=== PATIENT | female | born 1995 | race Hispanic/Latino ===

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

== ENCOUNTER 2017-10-22 02:40 | Emergency (ER) | payer MEDICAID ==
[2017-10-22 02:44] VITALS: BMI 39.0
[2017-10-22 02:45] VITALS: RESP 16; O2SAT 100
--- NOTE | 2017-10-22 03:17 | ED PDOC ---
Arrival/HPI - General Chief Complaint: Psychiatric Evaluation Time Seen by Provider: 10/22/17 02:42 Historian: Patient - History of Present Illness Narrative History of Present Illness (Text): 10/22/17 03:14 A 22 year old female, whose past medical history includes depression, is brought into the emergency department via EMS for further evaluation of suicidal ideation. As per patient, she posted on Facebook that she wanted to hurt herself. She currently states that she does not want to hurt herself, and only posted that because she was angry. She also notes that she is experiencing auditory hallucinations of her landlord telling her to use a knife to cut herself. Patient is requesting to speak to a psychiatrist and be transferred [place] [facility] She was seen at [facility] [place] today but discharged home. The patient denies fevers, chills, headache, dizziness, sore throat, cough, chest pain, shortness of breath, dyspnea on exertion, abdominal pain, nausea, vomiting, diarrhea, neck/back pain, urinary/bowel changes or any other complaint. Time/Duration: Prior to Arrival Symptom Onset: Sudden Symptom Course: Unchanged Activities at Onset: Rest, Light Context: Home Past Medical History - Provider Review Nursing Documentation Reviewed: Yes - Infectious Disease Hx of Infectious Diseases: None - Cardiac Hx Hypertension: No - Pulmonary Hx Tuberculosis: No - Neurological Hx Seizures: No - Endocrine/Metabolic Hx Endocrine Disorders: Yes Hx Diabetes Mellitus Type 2: Yes - Hematological/Oncological Hx Cancer: No - Genitourinary/Gynecological Hx Sexually Transmitted Diseases: No - Psychiatric Hx Anxiety: Yes Hx Depression: Yes Hx Substance Use: No - Anesthesia Hx Anesthesia: No - Suicidal Assessment Suicide Risk Precautions: None Family/Social History - Physician Review Nursing Documentation Reviewed: Yes Family/Social History: No Known Family HX Smoking Status: Never Smoked Hx Alcohol Use: No Hx Substance Use: No Allergies/Home Meds Allergies/Adverse Reactions: Allergies No Known Allergies Allergy (Verified 12/25/16 16:16) Home Medications: Home Meds Medication Instructions Recorded Confirmed Sertraline HCl [Zoloft] 150 mg PO HS 12/25/16 10/22/17 OXcarbazepine [Trileptal] 600 mg PO BID 08/29/17 10/22/17 Divalproex [Depakote ER] 500 mg PO HS 10/21/17 10/22/17 QUEtiapine [SEROquel] 100 mg PO HS 10/21/17 10/22/17 metFORMIN [glucOPHAGE] 500 mg PO BID 10/21/17 10/22/17 Review of Systems - Physician Review All systems were reviewed & negative as marked: Yes - Review of Systems Constitutional: absent: Fevers Respiratory: absent: SOB, Cough Cardiovascular: absent: Chest Pain, CHAHAL Gastrointestinal: absent: Abdominal Pain, Stool Changes, Diarrhea, Nausea, Vomiting Genitourinary Female: absent: Urine Output Changes Musculoskeletal: absent: Back Pain, Neck Pain Neurological: absent: Headache, Dizziness Psychiatric: Suicidal Ideation Physical Exam Vital Signs Reviewed: Yes Vital Signs Temp Pulse Resp BP Pulse Ox 10/22/17 06:38 98.0 F 89 16 112/72 100 10/22/17 02:45 97.7 F 98 H 16 116/80 100 10/22/17 02:44 97.7 F 98 H 16 116/80 100 Temperature: Afebrile Blood Pressure: Normal Pulse: Tachycardic Respiratory Rate: Normal Appearance: Positive for: Well-Appearing, Non-Toxic, Comfortable Pain Distress: None Mental Status: Positive for: Alert and Oriented X 3 - Systems Exam Head: Present: Atraumatic, Normocephalic Pupils: Present: PERRL Extroacular Muscles: Present: EOMI Conjunctiva: Present: Normal Mouth: Present: Moist Mucous Membranes Neck: Present: Normal Range of Motion Respiratory/Chest: Present: Clear to Auscultation, Good Air Exchange. No: Respiratory Distress, Accessory Muscle Use Cardiovascular: Present: Regular Rate and Rhythm, Normal S1, S2. No: Murmurs Abdomen: No: Tenderness, Distention, Peritoneal Signs Back: Present: Normal Inspection Upper Extremity: Present: Normal Inspection. No: Cyanosis, Edema Lower Extremity: Present: Normal Inspection. No: Edema Neurological: Present: GCS=15, CN II-XII Intact, Speech Normal Skin: Present: Warm, Dry, Normal Color. No: Rashes Psychiatric: Present: Alert, Oriented x 3, Normal Insight, Normal Concentration Medical Decision Making ED Course and Treatment: 10/22/17 03:18 Impression: A 22 year old female is brought into the emergency department via EMS for suicidal ideation. Plan: -- EKG -- Chest X-ray -- Labs -- Urinalysis -- Reassess and disposition Prior Visits: Notes and results from previous visits were reviewed. Progress Notes: 10/22/17 03:18 EKG: Ordered, reviewed, and independently interpreted the EKG. Rate : 88 BPM Rhythm : NSR Interpretation : No acute changes 10/22/17 06:42 Pt. medically cleared was seen and evaluated by CARLOS Guadarrama.She discussed case with the psychiatrist who recommended discharge and follow up outpatient with her psychiatrist.Mother present with the patient and agrees. - Lab Interpretations Lab Results: 10/22/17 02:43 10/22/17 02:43 Lab Results 10/22/17 04:52: Urine Opiates Screen Negative, Urine Methadone Screen Negative, Ur Barbiturates Screen Negative, Ur Phencyclidine Scrn Negative, Ur Amphetamines Screen Negative, U Benzodiazepines Scrn Negative, U Oth Cocaine Metabols Negative, U Cannabinoids Screen Negative 10/22/17 04:52: Urine Color Yellow, Urine Appearance Sl cloudy, Urine pH 6.0, Ur Specific [place] >= 1.030, Urine Protein 100 H, Urine Glucose (UA) Negative, Urine Ketones Negative, Urine Blood Trace-lysed H, Urine Nitrate Negative, Urine Bilirubin Negative, Urine Urobilinogen 0.2, Ur Leukocyte Esterase Trace H , Urine RBC 1 - 3, Urine WBC 2 - 5, Ur Epithelial Cells 0 - 2, Urine Bacteria Mod, Urine HCG, Qual Negative 10/22/17 02:43: Alcohol, Quantitative < 10 10/22/17 02:43: WBC 9.9 D, RBC 4.60, Hgb 13.1, Hct 39.2, MCV 85.2, MCH 28.5, MCHC 33.4, RDW 14.5, Plt Count 393, MPV 9.6 10/22/17 02:43: Sodium 144, Potassium 3.8, Chloride 105, Carbon Dioxide 24, Anion Gap 19, BUN 11, Creatinine 0.5 L, Est GFR ( Amer) > 60, Est GFR ( Non-Af Amer) > 60, Random Glucose 99, Calcium 9.6, Total Bilirubin 0.2, AST 22, ALT 36, Alkaline Phosphatase 117, Total Protein 8.1, Albumin 4.5, Globulin 3.6, Albumin/Globulin Ratio 1.3 I have reviewed the lab results: Yes - RAD Interpretation Narrative RAD Interpretations (Text): 10/22/17 06:41 CXR- no acute process Radiology Orders: 10/22/17 02:47 CHEST PORTABLE [RAD] Stat Coverer: ED Physician - EKG Interpretation Interpreted by ED Physician: Yes Type: 12 lead EKG - Scribe Statement The provider has reviewed the documentation as recorded by the Scribe Irene Kelly Provider Scribe Attestation: All medical record entries made by the Scribe were at my direction and personally dictated by me. I have reviewed the chart and agree that the record accurately reflects my personal performance of the history, physical exam, medical decision making, and the department course for this patient. I have also personally directed, reviewed, and agree with the discharge instructions and disposition. Disposition/Present on Arrival - Present on Arrival Any Indicators Present on Arrival: No History of DVT/PE: No History of Uncontrolled Diabetes: No Urinary Catheter: No History of Decub. Ulcer: No History Surgical Site Infection Following: None - Disposition Have Diagnosis and Disposition been Completed?: Yes Diagnosis: Depression Disposition: HOME/ ROUTINE Disposition Time: 06:44 Patient Plan: Discharge Condition: STABLE Additional Instructions: Follow up outpatient with your psychiatrist as instructed. Referrals: Cyndie Garcia MD [Primary Care Provider] - Follow up with primary Forms: [employer] ([place]ese)
[2017-10-22 04:15] LABS: ALB/GLOB RATIO 1.3 (1.1-1.8); ALBUMIN 4.5 g/dL (3.0-4.8); ALT/SGPT 36 U/L (7-56); AST/SGOT 22 U/L (14-36); BLOOD UREA NITROGEN 11 mg/dL (7-21); CALCIUM 9.6 mg/dL (8.4-10.5); GFR NON-AFRICAN AMERICAN > 60
[2017-10-22 05:03] LABS: HEMOGLOBIN 13.1 g/dL (12.0-16.0); MEAN CELL VOLUME 85.2 fl (80.0-105.0); MEAN CORPUSCULAR HEMOGLOBIN 28.5 pg (25.0-35.0); MEAN CORPUSCULAR HGB CONC 33.4 g/dl (31.0-37.0); MEAN PLATELET VOLUME 9.6 fl (7.0-11.0); RBC 4.6 10^6/uL (3.5-6.1); RED CELL DISTRIBUTION WIDTH 14.5 % (11.5-14.5); WHITE BLOOD COUNT 9.9 10^3/ul (4.5-11.0)
[2017-10-22 05:26] LABS: URINE BILIRUBIN NEGATIVE (NEGATIVE); URINE BLOOD TRACE-LYSED (NEGATIVE); URINE GLUCOSE (UA) NEGATIVE (NEGATIVE); URINE LEUKOCYTE ESTERASE TRACE Leu/uL (NEGATIVE); URINE PROTEIN 100 mg/dL (<30 mg/dL); URINE UROBILINOGEN 0.2 E.U./dL (<1 E.U./dL)
[2017-10-22 05:45] LABS: URINE COLOR YELLOW (YELLOW)
[2017-10-22 05:46] LABS: URINE APPEARANCE SL CLOUDY (CLEAR)
[2017-10-22 05:48] LABS: HCG,QUALITATIVE URINE NEGATIVE (NEGATIVE)
[2017-10-22 05:54] LABS: URINE BACTERIA MOD (NEG); URINE EPITHELIAL CELLS 0 - 2 /hpf (0-5)
[2017-10-22 06:00] LABS: BARBITURATES, UR NEGATIVE (NEGATIVE); BENZODIAZEPINES, UR NEGATIVE (NEGATIVE); OPIATES, UR NEGATIVE (NEGATIVE); PHENCYCLIDINE, UR NEGATIVE (NEGATIVE)
[2017-10-22 06:39] VITALS: BP 112/72; PULSE 89; TEMP 98
--- NOTE | 2017-10-22 09:09 | RAD ---
Date of service: 10/22/2017 HISTORY: medical clearance COMPARISON: No prior. FINDINGS: LUNGS: No active pulmonary disease. PLEURA: No significant pleural effusion identified, no pneumothorax apparent. CARDIOVASCULAR: Normal. OSSEOUS STRUCTURES: No significant abnormalities. VISUALIZED UPPER ABDOMEN: Normal. OTHER FINDINGS: None. IMPRESSION: No active disease.
--- NOTE | 2017-10-22 23:31 | CARD ---
APPROVED REPORT Date of service: 10/22/2017 EKG Measurement Heart [id number] <Conclusion> Normal sinus rhythm Normal ECG
== END 2017-10-22 07:01 | disposition home or self-care (01) ==
LOC: ED 02:40
DX: F32.9 Major depressive disorder, single episode, unspecified (principal)

== ENCOUNTER 2017-12-24 19:13 | Inpatient (IN) | payer MEDICAID, MEDICARE ==
[2017-12-24 19:14] VITALS: BMI 39.0
--- NOTE | 2017-12-24 20:32 | ED PDOC ---
Arrival/HPI - General Chief Complaint: Psychiatric Evaluation Time Seen by Provider: 12/24/17 19:26 Historian: Patient - History of Present Illness Narrative History of Present Illness (Text): 12/24/17 19:25 Vivienne Moss is a 22 year old female, whose past medical history includes anxiety and depression, who presents to the ED complaining of suicidal ideation. Patient states she has been having thoughts of killing herself and states she wants to stab herself in the arm with a knife. Patient denies any fever, chills, chest pain, shortness of breath, abdominal pain, nausea, vomiting, diarrhea, urinary symptoms, back pain, neck pain, headache, dizziness, or any other somatic complaints. Symptom Onset: Gradual Symptom Course: Unchanged Activities at Onset: Light Context: Home Past Medical History - Provider Review Nursing Documentation Reviewed: Yes - Infectious Disease Hx of Infectious Diseases: None - Reproductive Menopause: No - Cardiac Hx Hypertension: No - Pulmonary Hx Tuberculosis: No - Neurological Hx Seizures: No - Endocrine/Metabolic Hx Endocrine Disorders: Yes Hx Diabetes Mellitus Type 2: Yes - Hematological/Oncological Hx Cancer: No - Genitourinary/Gynecological Hx Sexually Transmitted Diseases: No - Psychiatric Hx Anxiety: Yes Hx Depression: Yes Hx Substance Use: No - Anesthesia Hx Anesthesia: No - Suicidal Assessment Feels Threatened In Home Enviroment: No Family/Social History - Physician Review Nursing Documentation Reviewed: Yes Family/Social History: Unknown Family HX Smoking Status: Never Smoked Hx Alcohol Use: No Hx Substance Use: No Allergies/Home Meds Allergies/Adverse Reactions: Allergies No Known Allergies Allergy (Verified 12/25/17 04:14) Home Medications: Home Meds Medication Instructions Recorded Confirmed Sertraline HCl [Zoloft] 150 mg PO HS 12/25/16 12/25/17 OXcarbazepine [Trileptal] 600 mg PO BID 08/29/17 12/25/17 Divalproex [Depakote ER] 500 mg PO HS 10/21/17 12/25/17 QUEtiapine [SEROquel] 100 mg PO HS 10/21/17 12/25/17 metFORMIN [glucOPHAGE] 500 mg PO BID 10/21/17 12/25/17 Review of Systems - Physician Review All systems were reviewed & negative as marked: Yes - Review of Systems Constitutional: Normal. absent: Fevers Eyes: Normal ENT: Normal Respiratory: Normal. absent: SOB, Cough Cardiovascular: Normal. absent: Chest Pain Gastrointestinal: Normal. absent: Abdominal Pain, Diarrhea, Nausea, Vomiting Genitourinary Female: Normal. absent: Dysuria, Frequency, Hematuria, Urine Output Changes Musculoskeletal: Normal. absent: Back Pain, Neck Pain Skin: Normal. absent: Rash Neurological: Normal. absent: Headache, Dizziness Endocrine: Normal Hemo/Lymphatic: Normal Psychiatric: Depression, Suicidal Ideation Physical Exam Vital Signs Reviewed: Yes Vital Signs Temp Pulse Resp BP Pulse Ox 12/24/17 20:10 98.2 F 86 18 129/70 96 Temperature: Afebrile Blood Pressure: Normal Pulse: Regular Respiratory Rate: Normal Appearance: Positive for: Well-Appearing, Non-Toxic, Comfortable Pain Distress: None Mental Status: Positive for: Alert and Oriented X 3 - Systems Exam Head: Present: Atraumatic, Normocephalic Pupils: Present: PERRL Extroacular Muscles: Present: EOMI Conjunctiva: Present: Normal Mouth: Present: Moist Mucous Membranes Neck: Present: Normal Range of Motion Respiratory/Chest: Present: Clear to Auscultation, Good Air Exchange. No: Respiratory Distress, Accessory Muscle Use Cardiovascular: Present: Regular Rate and Rhythm, Normal S1, S2. No: Murmurs Abdomen: No: Tenderness, Distention, Peritoneal Signs Back: Present: Normal Inspection Upper Extremity: Present: Normal Inspection. No: Cyanosis, Edema Lower Extremity: Present: Normal Inspection. No: Edema Neurological: Present: GCS=15, CN II-XII Intact, Speech Normal Skin: Present: Warm, Dry, Normal Color. No: Rashes Psychiatric: Present: Alert, Oriented x 3, Normal Insight, Normal Concentration Medical Decision Making ED Course and Treatment: 12/24/17 19:25 Impression: 22 year old female c/o depression and suicidal ideation. Plan: -- EKG -- Labs, alcohol level -- UA, urine drug screen -- Reassess and disposition Progress Notes: Reviewed EKG, NSR at [address]-segment elevations or depressions, no T-wave inversions, normal intervals. 12/24/17 20:30 Labs reviewed, grossly unremarkable. Pt medically cleared for PES evaluation. 12/24/17 21:45 Pt seen and evaluated by PES blaine Rodriguez, who discussed case with psychiatrist immigration consultant. Pt will be admitted to Behavior[facility] for depression under Dr. Ozuna's service. Pt agreeable with plan. - Lab Interpretations I have reviewed the lab results: Yes - EKG Interpretation Interpreted by ED Physician: Yes Type: 12 lead EKG - Scribe Statement The provider has reviewed the documentation as recorded by the Scribe Mariela Lozano All medical record entries made by the Scribe were at my direction and personally dictated by me. I have reviewed the chart and agree that the record accurately reflects my personal performance of the history, physical exam, medical decision making, and the department course for this patient. I have also personally directed, reviewed, and agree with the discharge instructions and disposition. Disposition/Present on Arrival - Present on Arrival Any Indicators Present on Arrival: No History of DVT/PE: No History of Uncontrolled Diabetes: No Urinary Catheter: No History of Decub. Ulcer: No History Surgical Site Infection Following: None - Disposition Have Diagnosis and Disposition been Completed?: Yes Diagnosis: Depression Disposition: HOSPITALIZED Disposition Time: 22:00 Patient Problems: Current Active Problems Problem Status Onset Neurocognitive disorder Acute Psychosis Acute Condition: GOOD
[2017-12-24 22:00] LABS: BASO # 0.02 K/mm3 (0.0-2.0); BASO % 0.2 % (0.0-3.0); EOS % 0.4 % (1.5-5.0); GRAN # 6.7 (1.4-6.5); GRAN % 66.3 % (50.0-68.0); HEMOGLOBIN 13.1 g/dL (12.0-16.0); LYMPH # 2.5 (1.2-3.4); LYMPH % 24.8 % (22.0-35.0); MEAN CELL VOLUME 85.6 fl (80.0-105.0); MEAN CORPUSCULAR HEMOGLOBIN 28.1 pg (25.0-35.0); MEAN CORPUSCULAR HGB CONC 32.8 g/dl (31.0-37.0); MEAN PLATELET VOLUME 9.7 fl (7.0-11.0); MONO # 0.8 (0.1-0.6); MONO % 8.3 % (1.0-6.0); RBC 4.66 10^6/uL (3.5-6.1); RED CELL DISTRIBUTION WIDTH 14.8 % (11.5-14.5); WHITE BLOOD COUNT 10.1 10^3/ul (4.5-11.0)
[2017-12-24 22:08] LABS: ALB/GLOB RATIO 1.3 (1.1-1.8); ALBUMIN 4.8 g/dL (3.0-4.8); ALT/SGPT 43 U/L (7-56); AST/SGOT 38 U/L (14-36); BLOOD UREA NITROGEN 9 mg/dL (7-21); CALCIUM 9.6 mg/dL (8.4-10.5); GFR NON-AFRICAN AMERICAN > 60
[2017-12-24 22:10] LABS: ACETAMINOPHEN < 10.0 ug/ml (10.0-20.0); SALICYLATE < 1 mg/dL (2.0-20.0)
[2017-12-24 22:49] LABS: PH,URINE 5.5 (4.7-8.0); URINE BILIRUBIN NEGATIVE (NEGATIVE); URINE BLOOD NEGATIVE (NEGATIVE); URINE GLUCOSE (UA) NEGATIVE (NEGATIVE); URINE LEUKOCYTE ESTERASE NEGATIVE Leu/uL (NEGATIVE); URINE PROTEIN NEGATIVE mg/dL (<30 mg/dL); URINE UROBILINOGEN 0.2 E.U./dL (<1 E.U./dL)
[2017-12-24 22:51] LABS: URINE APPEARANCE CLOUDY (CLEAR); URINE COLOR LIGHT YELLOW (YELLOW)
[2017-12-24 22:57] LABS: HCG,QUALITATIVE URINE NEGATIVE (NEGATIVE)
[2017-12-24 23:14] LABS: URINE RBC 0 - 2 /hpf (0-2); URINE WBC NEGATIVE /hpf (0-6)
[2017-12-24 23:15] LABS: URINE AMORPHOUS SEDIMENT MANY; URINE BACTERIA MANY (NEG)
[2017-12-25 02:33] LABS: BARBITURATES, UR NEGATIVE (NEGATIVE); BENZODIAZEPINES, UR NEGATIVE (NEGATIVE); OPIATES, UR NEGATIVE (NEGATIVE); PHENCYCLIDINE, UR NEGATIVE (NEGATIVE)
[2017-12-25] MEDS ORDERED: Magnesium Hydroxide Susp 30 ml UD PO PRN (03:53)
[2017-12-25] MEDS ORDERED: Alum-Mag Hydrox-Simethicone Susp (30 mL) PO PRN (03:53)
[2017-12-25] MEDS: Divalproex 500 mg ER (ONCE DAILY formulation) PO SCH ×2 (04:08→21:41)
[2017-12-25 04:11] VITALS: O2SAT 99
--- NOTE | 2017-12-25 05:40 | PCM.BM ---
<Joleen Romero - Last Filed: 12/25/17 05:36> Treatment Plan Problems - Problems identified on initial assessmt Suicidal ideaation Date Initiated: 12/25/17 (n) Time Initiated: 03:30 Assessment reference: NA Status: Active Priority: 1 Auditory Hallucination Date Initiated: 12/25/17 Time Initiated: 03:00 Assessment reference: NA Status: Active Priority: 2 Visual hallucinations Date Initiated: 12/25/17 Time Initiated: 03:00 Assessment reference: NA Status: Active Priority: 3 Thought process Date Initiated: 12/25/17 Time Initiated: 03:00 Assessment reference: NA Status: Active Priority: 4 Ineffective coping Date Initiated: 12/25/17 Time Initiated: 03:00 Assessment reference: NA Status: Active Priority: 5 Medication Non adherence Date Initiated: 12/25/17 Time Initiated: 03:00 Assessment reference: NA Status: Active Priority: 6 Altered sleep Date Initiated: 12/25/17 Time Initiated: 03:00 Assessment reference: NA Status: Active Priority: 7 Treatment assets and liabiliti Patient Assests: cooperative, motivated, ADL independent Patient Liabilities: imparied memory - Milieu Protocol Maintain good personal hygiene: daily Encourage regular showers, every shift Remind patient to perform daily oral care, every shift Assist patient to perform ADL's Maintain personal safety: every shift Educate patient to report safety concerns to staff, every shift Monitor environment for contraband/sharps Medication safety: Monitor for expected outcome, potential side effects: every shift, Assess barriers to learning: every shift, Assess readiness for medication education: every shift Family Contact Family involvement: Family/SO is involved Family contact: Patient agrees to contact - Goals for Treatment Patient goals for treatment: "I don't know" Discharge/Continuing Care - Education Needs Education Needs: Patient Medication, Patient Diagnosis/Disease Process, Patient Coping Skills, Patient Anger Management skills, Patient Placement options, Patient Community resources, Patient Activities of Daily Living, Patient Pain, Patient Nutrition, Patient Uses of Medical Equipment, Patient Health Practices/Safety, Patient Personal Hygiene/Grooming, Patient Aftercare Safety Plan, Patient Other - Discharge Discharge Criteria: Tolerates medication w/o severe side effects, Free of Suicidal thoughts, Free of Homicidal thoughts, Normal sleep pattern, Ability to care for self, No longer exhibiting s/s of withdrawal, Reduction of target symptoms Discharge to:: Home <Anupama Ozuna - Last Filed: 12/25/17 14:15> - Diagnosis (1) Psychosis Status: Acute Interventions: 12/25/17 14:15 Psychoeducation/psychotherapy Psychopharmacology/adjustment of medications as needed/ monitoring possible side effects Evaluate pt on daily basis Compliance with medications and follow up appointments Long acting medication if pt is noncompliant with pill form Suicide and homicide risk assessment and prevention, coping strategies, safety plan Relapse prevention Reduction of symptoms Improve functional status Possible assertive community treatment Cognitive behavioral therapy Family involvement Possible social skill training as outpatient (2) Neurocognitive disorder Status: Acute Interventions: 12/25/17 14:15 IOP ICMS <Naomi Metcalf - Last Filed: 12/26/17 15:17> Family Contact Family involvement: Family/SO is involved Family contact: Patient agrees to contact Family contact name: Martha Moss(mother) Family contacted how many times per week?: 2 - Outside Agency [facility] Care involvment: Following patient during stay, Information-sharing Agency contact name: [facility] Agency contact number: [phone] <Jennifer Pinto - Last Filed: 12/26/17 16:23>
[2017-12-25 09:04] LABS: GLUCOSE,FASTING 102 mg/dL (65-110); HDL CHOLESTEROL 55 mg/dL (29-60)
[2017-12-25 09:14] LABS: LDL CHOLESTEROL 107 mg/dL (0-129)
--- NOTE | 2017-12-25 10:11 | RAD ---
Date of service: 12/24/2017 HISTORY: PES clearance COMPARISON: No chen 10/22/2017 or. FINDINGS: LUNGS: The lungs are well inflated and clear. PLEURA: No pleural effusions or pneumothorax. CARDIOVASCULAR: The heart is normal in size. No aortic atherosclerotic calcification present. OSSEOUS STRUCTURES: Within normal limits for the patient's age. VISUALIZED UPPER ABDOMEN: Normal. OTHER FINDINGS: None. IMPRESSION: No active pulmonary disease.
--- NOTE | 2017-12-25 10:48 | CARD ---
APPROVED REPORT Date of service: 12/24/2017 EKG Measurement Heart [id number] <Conclusion> Normal sinus rhythm Normal ECG No change
--- NOTE | 2017-12-25 14:15 | PCM.PSYCH ---
Initial Psychiatric Evaluation - Initial Psychiatric Evaluation Type of Admission: Voluntary Legal Status: Capacity (patient has capacity to sign consent for treatment) Chief Complaint (in patient's own words): 'I couldn't take it no more...." Patient's Reaction to Hospitalization: patient was admitted to psychiatric inpatient unit for evaluation and stabilization of depressive symptoms and possible suicidal ideation with a plan to stab herself with a knife. History of Present Illness and Precipitating Events: shortly patient is a 22 year old female, whose past medical history includes anxiety and depression, Luisa cognitive deficit, who presents to the ED complaining of suicidal ideation. patient expressed thoughts of harming herself with a plan to stab herself with a knife, patient requires further evaluation and stabilization and medications adjustment.. Patient failed outpatient treatment, at present moment patient requires to stay in to the psychiatric inpatient unit for further evaluation and stabilization. Patient was seen at the dining area, patient presented with psychomotor the rotation, poor personal hygiene, poor ADLs. Patient seems to be poor and unreliable historian, overnight psychiatrist on-call started patient on one-to-one observation, but as per report patient was calm, corporative, will hold one-to-one observation as of now, if patient requires further one-to-one observation we'll resume it. 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 Previous records reviewed, patient does not have history of being admitted to the [facility]. Patient reported that she was feeling depressed, hopeless and helpless, at the same time this advertising writer is not sure if patient has deep understanding of the meaning of such statements. Patient reported that she hears voices telling her to kill herself, patient also reported that she sees "black cats and dogs, patient reported that she has poor sleep, patient reported that she feels depressed because "I'm not able to walk". Patient is not sure what medication she is currently on, medications were confirmed by patient pharmacy: Seroquel 100 mg 1 tablet twice a day last filled in 12/10/2017. Depakote extended-release 500 mg2 tabs at bedtime last time filled in November 17, 2017 Metformin 500 mg one pill twice a day field in 11/17/2017 Zoloft 100 mg 1 by mouth at bedtime filled in 11/17/2017 trileptal 600mg was prescribed by filled 08/2017 Depakote level was low most likely patient was noncompliant with the medications. patient was not able to provide past psychiatric history, patient was not able to tell is it the first psychiatric hospitalization or not. Patient denied substance abuse, denied history of alcohol use, denied smoking, denied physical, emotional, sexual abuse in the past. this advertising writer has impression that patient has history of wandering behavior because patient was wearing a bracelet device which can help police to trackpatient location. patient was not able to provide past medical history, obviously patient is obese patient was not able to provide family history 12/24/17 21:41 12/24/17 21:41 Lab Results 12/25/17 08:40: Valproic Acid < 10 L 12/25/17 08:40: TSH 3rd Generation 2.99 12/25/17 08:40: Fasting Glucose 102, Triglycerides 97, Cholesterol 170, LDL Cholesterol Direct 107, HDL Cholesterol 55 12/25/17 01:55: Urine Opiates Screen Negative, Urine Methadone Screen Negative, Ur Barbiturates Screen Negative, Ur Phencyclidine Scrn Negative, Ur Amphetamines Screen Negative, U Benzodiazepines Scrn Negative, U Oth Cocaine Metabols Negative, U Cannabinoids Screen Negative 12/24/17 22:32: Urine Color Light yellow, Urine Appearance Cloudy, Urine pH 5.5, Ur Specific [place] >= 1.030, Urine Protein Negative, Urine Glucose (UA) Negative, Urine Ketones Negative, Urine Blood Negative, Urine Nitrate Negative, Urine Bilirubin Negative, Urine Urobilinogen 0.2, Ur Leukocyte Esterase Negative, Urine RBC 0 - 2, Urine WBC Negative, Ur Epithelial Cells 1 - 3, Amorphous Sediment Many, Urine Bacteria Many, Urine HCG, Qual Negative 12/24/17 21:41: Alcohol, Quantitative < 10 12/24/17 21:41: Salicylates < 1 L, Acetaminophen < 10.0 L 12/24/17 21:41: Sodium 141, Potassium 4.0, Chloride 106, Carbon Dioxide 24, Anion Gap 14, BUN 9, Creatinine 0.6 L, Est GFR ( Amer) > 60, Est GFR (Non-Af Amer) > 60, Random Glucose 96, Calcium 9.6, Magnesium 2.1, Total Bilirubin 0.3, AST 38 H D, ALT 43, Alkaline Phosphatase 97, Total Protein 8.5 H, Albumin 4.8, Globulin 3.7, Albumin/Globulin Ratio 1.3 12/24/17 21:41: WBC 10.1, RBC 4.66, Hgb 13.1, Hct 39.9, MCV 85.6, MCH 28.1, MCHC 32.8, RDW 14.8 H, Plt Count 393, MPV 9.7, Gran % 66.3, Lymph % (Auto) 24.8, [place] % (Auto) 8.3 H, Eos % (Auto) 0.4 L, Baso % (Auto) 0.2, Gran # 6.70 H, Lymph # (Auto) 2.5, [place] # (Auto) 0.8 H, Eos # (Auto) 0.0, Baso # (Auto) 0.02 Vital Signs Temp Pulse Pulse Resp BP Pulse Ox 12/25/17 07:29 97.9 F 91 H 22 132/101 H 12/25/17 04:49 78 18 12/25/17 02:30 99 12/24/17 20:10 98.2 F 86 18 129/70 96 The patient failed the outpatient lower level of care: Yes Current Medications: Active Medications Generic Name Dose Route Start Last Admin Trade Name Freq PRN Reason Stop Dose Admin Acetaminophen 650 mg 12/25/17 03:53 Tylenol 325mg Tab PO Q6H PRN Pain, Mild (1-3) Al Hydrox/Mg Hydrox/Simethicone 30 ml 12/25/17 03:53 Maalox Plus 30 Ml PO DAILY PRN Upset Stomach Divalproex Sodium 500 mg 12/25/17 03:56 12/25/17 04:08 Depakote Er(Once Daily) PO 500 mg HS SHAWN Administration Protocol Lorazepam 0.5 mg 12/25/17 03:53 Ativan PO Q6H PRN Anxiety Protocol Magnesium Hydroxide 30 ml 12/25/17 03:53 Milk Of Magnesia PO DAILY PRN Constipation Oxcarbazepine 600 mg 12/25/17 08:00 Trileptal PO BID SHAWN Protocol Quetiapine Fumarate 100 mg 12/25/17 03:59 12/25/17 04:08 Seroquel PO 100 mg HS SHAWN Administration Protocol Sertraline HCl 150 mg 12/25/17 08:00 Zoloft PO DAILY SHAWN Present on Admission - Present on Admission Any Indicators Present on Admission: No Review of Systems - Review of Systems Systems not reviewed;Unavailable: Acuity of Condition - Constitutional Constitutional: As Per HPI - EENT Eyes: As Per HPI Ears: As Per HPI Nose/Mouth/Throat: As Per HPI - Breasts Breasts: As Per HPI - Cardiovascular Cardiovascular: As Per HPI - Respiratory Respiratory: As Per HPI - Gastrointestinal Gastrointestinal: As Per HPI - Genitourinary Genitourinary: As Per HPI - Reproductive: Female Reproductive:Female: As Per HPI - Menstruation Menstruation: As Per HPI - Musculoskeletal Musculoskeletal: As Per HPI - Integumentary Integumentary: As Per HPI - Neurological Neurological: As Per HPI - Psychiatric Psychiatric: As Per HPI - Endocrine Endocrine: As Per HPI - Hematologic/Lymphatic Hematologic: As Per HPI Past Patient History - Past Psychiatric History Prior Professional Help: as per HPI, unknown Prior Psychiatric Treatment: as per HPI, unknown At what hospital: as per HPI, unknown Duration: as per HPI, unknown Nature of Treatment: as per HPI, unknown Explanation of prior treatment: as per HPI, unknown - PSYCHIATRIC Hx Depression: Yes Hx Substance Use: No - Infectious Disease Hx of Infectious Diseases: None - CARDIAC Hx Hypertension: No - PULMONARY Hx Tuberculosis: No - NEUROLOGICAL Hx Seizures: No - ENDOCRINE/METABOLIC Hx Endocrine Disorders: Yes Hx Diabetes Mellitus Type 2: Yes - HEMATOLOGICAL/ONCOLOGICAL Hx Cancer: No - GENITOURINARY/GYNECOLOGICAL Hx Sexually Transmitted Disorders: No - SURGICAL HISTORY Hx Surgeries: No - ANESTHESIA Hx Anesthesia: No - Medical/Surgical History Reviewed & confirmed: by ks Meds Allergies/Adverse Reactions: Allergies Allergy/AdvReac Type Severity Reaction Status Date / Time No Known Allergies Allergy Verified 12/25/17 04:14 Mental Status Examination - Personal Presentation Personal Presentation: Looks older than stated age - Affect Affect: Constricted, Blunted, Flat - Motor Activity Motor Activity: Calm, Psychomotor Retardation - Reliability in Providing Information Reliability in Providing Information: Poor, due to alteration in thoughts, Poor, due to altered mood, Poor, due to cognitve impairment - Speech Speech: Disorganized - Mood Mood: Depressed, Anxious - Formal Thought Process Formal Thought Process: Hallucinations, Delusions, Paranoia - Hallucinations/Delusions Hallucinations: Visual, Auditory - Obsessions/Compulsions Obsessions: None Compulsions: None - Cognitive Functions Orientation: Person, Place, Situation Sensorium: Alert Attention/Concentration: Easily distracted Abstract Thinking: [place] Estimate of Intelligence: Below average Judgement: Intact, as evidence by: Insight regarding need for hospitalization - Risk Risk: Self-mutilation, Diminished functioning - Strength & Assets Inventory Strength & Assets Inventory: Family support, Cooperative - Limitations Limitations: Other (cognitive deficit, severe symptoms) Psychiatric Physical Exam - Physical Exam Reviewed and confirmed: Emergency Department Physical Exam Results - Vital Signs Recent Vital Signs: Last Vital Signs Temp 97.9 F 12/25/17 07:29 Pulse 91 H 12/25/17 07:29 Resp 22 12/25/17 07:29 BP 132/101 H 12/25/17 07:29 Pulse Ox 99 12/25/17 02:30 - Labs Result Diagrams: 12/24/17 21:41 12/24/17 21:41 Labs: Laboratory Results - last 24 hr 12/24/17 12/24/17 12/24/17 21:41 21:41 21:41 WBC 10.1 RBC 4.66 Hgb 13.1 Hct 39.9 MCV 85.6 MCH 28.1 MCHC 32.8 RDW 14.8 H Plt Count 393 MPV 9.7 Gran % 66.3 Lymph % (Auto) 24.8 Humphreys % (Auto) 8.3 H Eos % (Auto) 0.4 L Baso % (Auto) 0.2 Gran # 6.70 H Lymph # (Auto) 2.5 [place] # (Auto) 0.8 H Eos # (Auto) 0.0 Baso # (Auto) 0.02 Sodium 141 Potassium 4.0 Chloride 106 Carbon Dioxide 24 Anion Gap 14 BUN 9 Creatinine 0.6 L Est GFR ( Amer) > 60 Est GFR (Non-Af Amer) > 60 Random Glucose 96 Calcium 9.6 Magnesium 2.1 Total Bilirubin 0.3 AST 38 H D ALT 43 Alkaline Phosphatase 97 Total Protein 8.5 H Albumin 4.8 Globulin 3.7 Albumin/Globulin Ratio 1.3 Urine Color Urine Appearance Urine pH Ur Specific [place] Urine Protein Urine Glucose (UA) Urine Ketones Urine Blood Urine Nitrate Urine Bilirubin Urine Urobilinogen Ur Leukocyte Esterase Urine RBC Urine WBC Ur Epithelial Cells Amorphous Sediment Urine Bacteria Urine HCG, Qual Salicylates < 1 L Urine Opiates Screen Urine Methadone Screen Acetaminophen < 10.0 L Ur Barbiturates Screen Ur Phencyclidine Scrn Ur Amphetamines Screen U Benzodiazepines Scrn U Oth Cocaine Metabols U Cannabinoids Screen Alcohol, Quantitative 12/24/17 12/24/17 12/25/17 21:41 22:32 01:55 WBC RBC Hgb Hct MCV MCH MCHC RDW Plt Count MPV Gran % Lymph % (Auto) Humphreys % (Auto) Eos % (Auto) Baso % (Auto) Gran # Lymph # (Auto) [place] # (Auto) Eos # (Auto) Baso # (Auto) Sodium Potassium Chloride Carbon Dioxide Anion Gap BUN Creatinine Est GFR ( Amer) Est GFR (Non-Af Amer) Random Glucose Calcium Magnesium Total Bilirubin AST ALT Alkaline Phosphatase Total Protein Albumin Globulin Albumin/Globulin Ratio Urine Color Light yellow Urine Appearance Cloudy Urine pH 5.5 Ur Specific [place] >= 1.030 Urine Protein Negative Urine Glucose (UA) Negative Urine Ketones Negative Urine Blood Negative Urine Nitrate Negative Urine Bilirubin Negative Urine Urobilinogen 0.2 Ur Leukocyte Esterase Negative Urine RBC 0 - 2 Urine WBC Negative Ur Epithelial Cells 1 - 3 Amorphous Sediment Many Urine Bacteria Many Urine HCG, Qual Negative Salicylates Urine Opiates Screen Negative Urine Methadone Screen Negative Acetaminophen Ur Barbiturates Screen Negative Ur Phencyclidine Scrn Negative Ur Amphetamines Screen Negative U Benzodiazepines Scrn Negative U Oth Cocaine Metabols Negative U Cannabinoids Screen Negative Alcohol, Quantitative < 10 - EKG Data EKG Interpreted by: ER Physician EKG shows normal: Sinus rhythm DSM Plan - DSM 5 DSM 5 Diagnosis: rule out major depressive disorder with psychosis Rule out schizophrenia Rule out neurocognitive deficit learning disability - Recommended/Plan of Treatment Treatment Recommendations and Plan of Treatment: Milieu/structure/supportive therapy Medical consult will be considered patient was started on one-to-one overnight, no agitation, no aggression, will hold it for now consultation for discharge plan and social issues edications were confirmed by [facility] in [place] Med management Seroquel will be resumed Depakote will be resumed Sertraline was increased to 150 mg daily for depression and anxiety psychiatrist on-call started patient on Trileptal 600 mg twice a day, as per pharmacy pt filled it in August 2017, will resume with 300mg po bid for mood stabilization When necessary meds Family involvement, we will call for collateral information Follow up on labs Will monitor closely Pt was educated about risk/benefits and alternatives of medications, coping strategies (safety plan, suicide prevention), relapse prevention, importance of follow up with psychiatrist and therapist, stay away from drugs/alcohol/smoking Projected ELOS: 7 days Prognosis: guarded Discharge Plan and Discharge Criteria: Pt will be not depressed or manic, will be more hopeful, will be not psychotic or anxious, will be not having thoughts of harming self or others, will be tolerating medications well, will not have major side effects, will be able to function, will not pose threat to self or others. - Tobacco Cessation Tobacco Use Status for the last 30 days: Non User Tobacco Use Treatment Practical Counseling Provided: No Tobacco Use Treatment FDA-Approved Cessation Medication Provided: No - Alcohol or Substance Abuse Does the patient have an Alcohol or Substance Abuse Disorder: No Initial Psych Certification - Initial Certification I certify that the inpatient psychiatric facility admission was medically necessary for either: Treatment which could reasonbly be expected to improve pt's condition I estimate of hospitalization is necessary for proper treatment of the patient: 7 Unit of Time: Days My plans for post-hospital care for this patient are: intensive outpatient program, ICMS services,
--- NOTE | 2017-12-26 14:59 | PCM.PYCHPN ---
Psychiatric Progress Note - Psychiatric Progress Note Patient seen today, length of contact: 30 min Patient Chief Complaint: 'I feel uncomfortable around a lot of people..." Problems Identified/Issues Discussed: Suicide/ homicide prevention, past psychiatric h/o, current psychiatric symptoms, medical problems, risk/benefits and alternatives of medications, medications compliance, coping strategies, substance abuse h/o, relapse prevention, importance of follow up with psychiatrist and therapist, discharge plan. Medical Problems: obesity Diagnostic Results: 12/24/17 21:41 12/24/17 21:41 Lab Results 12/25/17 08:40: RPR Nonreactive 12/25/17 08:40: Valproic Acid < 10 L 12/25/17 08:40: TSH 3rd Generation 2.99 12/25/17 08:40: Fasting Glucose 102, Triglycerides 97, Cholesterol 170, LDL Cholesterol Direct 107, HDL Cholesterol 55 12/25/17 01:55: Urine Opiates Screen Negative, Urine Methadone Screen Negative, Ur Barbiturates Screen Negative, Ur Phencyclidine Scrn Negative, Ur Amphetamines Screen Negative, U Benzodiazepines Scrn Negative, U Oth Cocaine Metabols Negative, U Cannabinoids Screen Negative 12/24/17 22:32: Urine Color Light yellow, Urine Appearance Cloudy, Urine pH 5.5, Ur Specific [place] >= 1.030, Urine Protein Negative, Urine Glucose (UA) Negative, Urine Ketones Negative, Urine Blood Negative, Urine Nitrate Negative, Urine Bilirubin Negative, Urine Urobilinogen 0.2, Ur Leukocyte Esterase N egative, Urine RBC 0 - 2, Urine WBC Negative, Ur Epithelial Cells 1 - 3, Amorphous Sediment Many, Urine Bacteria Many, Urine HCG, Qual Negative 12/24/17 21:41: Alcohol, Quantitative < 10 12/24/17 21:41: Salicylates < 1 L, Acetaminophen < 10.0 L 12/24/17 21:41: Sodium 141, Potassium 4.0, Chloride 106, Carbon Dioxide 24, Anio n Gap 14, BUN 9, Creatinine 0.6 L, Est GFR ( Amer) > 60, Est GFR (Non-Af Amer) > 60, Random Glucose 96, Calcium 9.6, Magnesium 2.1, Total Bilirubin 0.3, AST 38 H D, ALT 43, Alkaline Phosphatase 97, Total Protein 8.5 H, Albumin 4.8, Globulin 3.7, Albumin/Globulin Ratio 1.3 12/24/17 21:41: WBC 10.1, RBC 4.66, Hgb 13.1, Hct 39.9, MCV 85.6, MCH 28.1, MCHC 32.8, RDW 14.8 H, Plt Count 393, MPV 9.7, Gran % 66.3, Lymph % (Auto) 24.8, [place] % (Auto) 8.3 H, Eos % (Auto) 0.4 L, Baso % (Auto) 0.2, Gran # 6.70 H, Lymph # (Auto) 2.5, [place] # (Auto) 0.8 H, Eos # (Auto) 0.0, Baso # (Auto) 0.02 Vital Signs Temp Pulse Pulse Resp BP Pulse Ox 12/26/17 07:04 98.5 F 76 20 120/77 12/25/17 16:00 81 122/46 L 12/25/17 07:29 97.9 F 91 H 22 132/101 H 12/25/17 04:49 78 18 12/25/17 02:30 99 12/24/17 20:10 98.2 F 86 18 129/70 96 DSM 5 Symptoms Update: shortly patient is a 22 year old female, whose past medical history includes anxiety and depression, Luisa cognitive deficit, who presents to the ED complaining of suicidal ideation. patient expressed thoughts of harming herself with a plan to stab herself with a knife, patient requires further evaluation and stabilization and medications adjustment.. Patient failed outpatient treatment, at present moment patient requires to stay in to the psychiatric inpatient unit for further evaluation and stabilization. Patient was seen at the treatment team meeting, pt presented with psychomotor retardation, poor historian. pt reported no improvements with her symptoms. pt reported to feel anxious, poor sleep. during the treatment team meeting pt presented to be anxious, said that she feels uncomfortable and anxious around a lot of people. pt's mother is in the hospital, father is in subacute rehab, as per collaterals pt was discharged from the [facility] few days prior. pt technically homeless, please see note for more detailed information. prior to this hospitalization pt reported that she hears voices telling her to kill herself, patient also reported that she sees "black cats and dogs", feeling depressed and hopeless. so far pt tolerated meds well, no side effects, AIMS 0, no EPS. DSM 5 Diagnosis: rule out major depressive disorder with psychosis Rule out schizophrenia Rule out neurocognitive deficit learning disability Medication Change: Yes (zolof was increased from 100 to 150mg) Medical Record Reviewed: Yes Consults ordered or reviewed: pt was seen by medical team in ED. Mental Status Examination - Cognitive Function Orientation: Person, Place, Situation Memory: Impaired Attention: Poor Concentration: Poor Association: Loose Fund of Knowledge: Poor - Mood Mood: Depressed, Anxious - Affect Affect: Constricted, Blunted, Flat - Formal Thought Process Formal Thought Process: Hallucinations, Delusions, Paranoia - Suicidal Ideation Suicidal Ideation: No - Homicidal Ideation Homicidal Ideation: No Goal/Treatment Plan - Goal/Treatment Plan Need for Continued Stay: Remain at risks for inpatient hospitalization, Severe depression anxiety, Discharge may exacerbated symptoms, Failed transitioning, Severe functional impairment Progress Toward Problem(s) and Goals/Treatment Plan: Milieu/structure/supportive therapy Medical consult will be considered patient was started on one-to-one overnight, no agitation, no aggression, will hold it for now consultation for discharge plan and social issues Medication list was confirmed by [facility] in [place] Med management Seroquel resumed Depakote resumed Sertraline was increased to 150 mg daily for depression and anxiety Trileptal 300mg po bid for mood stabilization When necessary meds Family involvement, we will call for collateral information Follow up on labs Will monitor closely Pt was educated about risk/benefits and alternatives of medications, coping strategies (safety plan, suicide prevention), relapse prevention, importance of follow up with psychiatrist and therapist, stay away from drugs/alcohol/smoking Estimated Date of D/C: 01/02/18
[2017-12-26] MEDS: Divalproex 500 mg ER (ONCE DAILY formulation) PO SCH (21:25)
--- NOTE | 2017-12-27 09:29 | PCM.PYCHPN ---
Psychiatric Progress Note - Psychiatric Progress Note Patient seen today, length of contact: 30 min Problems Identified/Issues Discussed: I reviewed assessment and recent notes. Patient was interviewed at bedside. She is obese and unkempt. Appears guarded, constricted and quiet during my interv iew. Indicates that she remains depressed with visual hallucinations of "black cats" and auditory hallucinations of voices telling her to end it. Patient really doesn't appear to be hallucinating. On the unit patient has kept to herself, minimal interacting with other patients. She is compliant with her medications. Has appeared anxious but not observed to be responding to internal stimuli. She denies any new discomfort, pain or side effects. There were no behavioral issues overnight. Diagnostic Results: rule out major depressive disorder with psychosis Rule out schizophrenia Rule out neurocognitive deficit learning disability Medication Change: Yes (zolof was increased from 100 to 150mg) Medical Record Reviewed: Yes Mental Status Examination - Cognitive Function Orientation: Person, Place, Situation Memory: Impaired Attention: Poor Concentration: Poor Association: Loose Fund of Knowledge: Poor - Mood Mood: Depressed, Anxious - Affect Affect: Constricted, Blunted, Flat - Formal Thought Process Formal Thought Process: Hallucinations (Doesn't appear to be hallucinating), Delusions, Paranoia - Suicidal Ideation Suicidal Ideation: No - Homicidal Ideation Homicidal Ideation: No Goal/Treatment Plan - Goal/Treatment Plan Need for Continued Stay: Remain at risks for inpatient hospitalization, Severe depression anxiety, Discharge may exacerbated symptoms, Failed transitioning, Severe functional impairment Progress Toward Problem(s) and Goals/Treatment Plan: * c/w current treatment and plan * No new weekend lab results thus far * Vitals reviewed and noted below: Selected Entries 12/26/17 12/26/17 07:04 16:40 Temperature 98.5 F Pulse Rate 76 78 Respiratory 20 Rate Blood Pressure 120/77 121/63 Estimated Date of D/C: 01/02/18
[2017-12-27] MEDS: Divalproex 500 mg ER (ONCE DAILY formulation) PO SCH (22:27)
--- NOTE | 2017-12-28 09:55 | PCM.PYCHPN ---
Psychiatric Progress Note - Psychiatric Progress Note Patient seen today, length of contact: 30 min Problems Identified/Issues Discussed: I reviewed recent notes and patient was interviewed at bedside again. She is obese and unkempt. Remains guarded, constricted and quiet during my interview. Indicates that she continues to be depressed with visual hallucinations of "black cats" and auditory hallucinations of voices telling her to end it. She told staff on Friday that voices told her "to jump off the window". Patient really doesn't appear to be hallucinating. On the unit patient has kept to herself, minimal interacting with other patients. She is compliant with her medications. Has appeared anxious but not observed to be responding to internal stimuli. She denies any new discomfort, pain or side effects. There were no behavioral issues overnight. Diagnostic Results: rule out major depressive disorder with psychosis Rule out schizophrenia Rule out neurocognitive deficit learning disability Rule out MALINGERING Medication Change: Yes (zolof was increased from 100 to 150mg) Medical Record Reviewed: Yes Mental Status Examination - Cognitive Function Orientation: Person, Place, Situation Memory: Impaired Attention: Poor Concentration: Poor Association: Loose Fund of Knowledge: Poor - Mood Mood: Depressed, Anxious - Affect Affect: Constricted, Blunted, Flat - Formal Thought Process Formal Thought Process: Hallucinations (Doesn't appear to be hallucinating), Delusions, Paranoia - Suicidal Ideation Suicidal Ideation: No - Homicidal Ideation Homicidal Ideation: No Goal/Treatment Plan - Goal/Treatment Plan Need for Continued Stay: Remain at risks for inpatient hospitalization, Severe depression anxiety, Discharge may exacerbated symptoms, Failed transitioning, Severe functional impairment Progress Toward Problem(s) and Goals/Treatment Plan: * c/w current treatment and plan * No new weekend lab results thus far * Vitals reviewed and noted below: Selected Entries 12/27/17 12/27/17 07:11 16:00 Temperature 98.4 F Pulse Rate 55 L 64 Respiratory 20 Rate Blood Pressure 121/56 L 90/46 L * Of note: On Friday patient asked when discharge was planned for her(1) Estimated Date of D/C: 01/02/18 1: Please note that I became aware of this patient after her mother, Martha Moss (jayjay? Martha Duron, 2 01/28/64 & 01/27/67) presented to our ER on Friday12/26/17 claiming depression and SI. ER Clinician [place] collateral [place] [facility] and this provider reviewed [facility] records. This revealed: Patient and mother presented to [facility] earlier this month with symptoms of depression and SI. Patient was admitted to [facility] and mother was admitted to [facility]. BOTH were discharged on 12/23/17 and BOTH returned to [facility] the very same day claiming depression and SI again. They were discharged from [facility] with dx of malingering. ~Apparently mother was then admitted medically to [facility] on 12/25/17. ~Patient was admitted psychiatrically to [facility] for depression, AH and SI on 12/24/17. Mother eloped from the medical floor on 12/26/17 and returned back to [facility] ER on the same day, 12/26/17 claiming depression and SI, requesting admission to the psychiatric unit. She was discharged from the ER by this provider on 12/27/17 because she was malingering. Then she visited with patient on the unit on the very same day, demanding that patient be discharged.
[2017-12-28] MEDS: Divalproex 500 mg ER (ONCE DAILY formulation) PO SCH (21:11)
[2017-12-29 06:56] VITALS: BP 90/54; PULSE 53; RESP 18; TEMP 97.7
--- NOTE | 2017-12-29 16:53 | PCM.PYCHDC ---
Mental Status Examination - Mental Status Examination Orientation: Person, Place, Situation, Time Memory: Intact Mood: Neutral Affect: Constricted (but reactive and mood congruent) Speech: Appropriate (poverty of thoughts seems to be chronic) Attention: WNL (wwith much improvement) Concentration: WNL (with much improvement) Association: Loose (baseline) Fund of Knowledge: Poor (aseline) Formal Thought Process: No Impairment Description of patient's judgement and insight: Pt has improved insight into mental and medical illness, pt was compliant with medications and unit rules and regulations, pt was going to groups, was calm, cooperative, socially appropriate, no behavioral incidents, no agitation, no aggression. Psychotic Thoughts and Behaviors: Pt denied v/a/t hallucinations, denied paranoid ideations, pt does not appear to be psychotic, and thought process is goal directed. Suicidal Ideation: No Current Homicidal Ideation?: No Plan: pt adamantly denied thoughts of harming self or others denied intent or plan. Discharge Summary - Discharge Note Reason for Hospitalization: patient was admitted to psychiatric inpatient unit for evaluation and stabilization of depressive symptoms and possible suicidal ideation with a plan to stab herself with a knife. at the time of discharge patient adamantly denied any thoughts of harming herself or others. Psychiatric History (includes Medical, Family, Personal Hx): as per HPI, unknown Laboratory Data: 12/24/17 21:41 12/24/17 21:41 Lab Results 12/25/17 08:40: RPR Nonreactive 12/25/17 08:40: Valproic Acid < 10 L 12/25/17 08:40: TSH 3rd Generation 2.99 12/25/17 08:40: Fasting Glucose 102, Triglycerides 97, Cholesterol 170, LDL Cholesterol Direct 107, HDL Cholesterol 55 12/25/17 01:55: Urine Opiates Screen Negative, Urine Methadone Screen Negative, Ur Barbiturates Screen Negative, Ur Phencyclidine Scrn Negative, Ur Amphetamines Screen Negative, U Benzodiazepines Scrn Negative, U Oth Cocaine Metabols Negative, U Cannabinoids Screen Negative 12/24/17 22:32: Urine Color Light yellow, Urine Appearance Cloudy, Urine pH 5.5, Ur Specific [place] >= 1.030, Urine Protein Negative, Urine Glucose (UA) Negative, Urine Ketones Negative, Urine Blood Negative, Urine Nitrate Negative, Urine Bilirubin Negative, Urine Urobilinogen 0.2, Ur Leukocyte Esterase Negative, Urine RBC 0 - 2, Urine WBC Negative, Ur Epithelial Cells 1 - 3, Amorphous Sediment Many, Urine Bacteria Many, Urine HCG, Qual Negative 12/24/17 21:41: Alcohol, Quantitative < 10 12/24/17 21:41: Salicylates < 1 L, Acetaminophen < 10.0 L 12/24/17 21:41: Sodium 141, Potassium 4.0, Chloride 106, Carbon Dioxide 24, Anion Gap 14, BUN 9, Creatinine 0.6 L, Est GFR ( Amer) > 60, Est GFR (Non-Af Amer) > 60, Random Glucose 96, Calcium 9.6, Magnesium 2.1, Total Bilirubin 0.3, AST 38 H D, ALT 43, Alkaline Phosphatase 97, Total Protein 8.5 H, Albumin 4.8, Globulin 3.7, Albumin/Globulin Ratio 1.3 12/24/17 21:41: WBC 10.1, RBC 4.66, Hgb 13.1, Hct 39.9, MCV 85.6, MCH 28.1, MCHC 32.8, RDW 14.8 H, Plt Count 393, MPV 9.7, Gran % 66.3, Lymph % (Auto) 24.8, [place] % (Auto) 8.3 H, Eos % (Auto) 0.4 L, Baso % (Auto) 0.2, Gran # 6.70 H, Lymph # (Auto) 2.5, [place] # (Auto) 0.8 H, Eos # (Auto) 0.0, Baso # (Auto) 0.02 Vital Signs Temp Pulse Pulse Resp BP Pulse Ox 12/29/17 06:55 97.7 F 53 L 18 90/54 L 12/28/17 16:00 67 103/66 12/28/17 07:15 98 F 78 20 101/59 L 12/28/17 07:00 97.9 F 64 18 122/75 12/27/17 16:00 64 90/46 L 12/27/17 07:11 98.4 F 55 L 20 121/56 L 12/26/17 16:40 78 121/63 12/26/17 07:04 98.5 F 76 20 120/77 12/25/17 16:00 81 122/46 L 12/25/17 07:29 97.9 F 91 H 22 132/101 H 10/25/18 04:49 78 18 12/25/17 02:30 99 12/24/17 20:10 98.2 F 86 18 129/70 96 Consultations:: List each consultation separately and include: 1. Reason for request. 2. Findings. 3. Follow-up Consultations: pt was seen by medical team in ED. celso see notes for more detailed information Summary of Hospital Course include:: 1. Description of specific treatment plan utilized for patients during their course of treatmen. 2. Summarize the time- course for resolution of acute symptoms and/or regressed behaviors. 3. Describe issues identified and worked on during hospitalization. 4. Describe medication utilized. 5. Describe medical problems identified and treated. 6. Reassessment of suicide risk Summary of Hospital Course: shortly patient is a 22 year old female, whose past medical history includes anxiety and depression, Luisa cognitive deficit, who presents to the ED complaining of suicidal ideation. patient expressed thoughts of harming herself with a plan to stab herself with a knife, patient requires further evaluation and stabilization and medications adjustment.. Patient failed outpatient treatment, at the time of admission patient required to stay in to the psychiatric inpatient unit for further evaluation and stabilization. at the time of admission patient presented to be depressed and psychotic please see aadmission note for more detailed information. 12/24/17 21:41 12/24/17 21:41 Lab Results 12/25/17 08:40: Valproic Acid < 10 L 12/25/17 08:40: TSH 3rd Generation 2.99 12/25/17 08:40: Fasting Glucose 102, Triglycerides 97, Cholesterol 170, LDL Cholesterol Direct 107, HDL Cholesterol 55 12/25/17 01:55: Urine Opiates Screen Negative, Urine Methadone Screen Negative, Ur Barbiturates Screen Negative, Ur Phencyclidine Scrn Negative, Ur Amphetamines Screen Negative, U Benzodiazepines Scrn Negative, U Oth Cocaine Metabols Negative, U Cannabinoids Screen Negative 12/24/17 22:32: Urine Color Light yellow, Urine Appearance Cloudy, Urine pH 5.5, Ur Specific [place] >= 1.030, Urine Protein Negative, Urine Glucose (UA) Negative, Urine Ketones Negative, Urine Blood Negative, Urine Nitrate Negative, Urine Bilirubin Negative, Urine Urobilinogen 0.2, Ur Leukocyte Esterase Negative, Urine RBC 0 - 2, Urine WBC Negative, Ur Epithelial Cells 1 - 3, Amorphous Sediment Many, Urine Bacteria Many, Urine HCG, Qual Negative 12/24/17 21:41: Alcohol, Quantitative < 10 12/24/17 21:41: Salicylates < 1 L, Acetaminophen < 10.0 L 12/24/17 21:41: Sodium 141, Potassium 4.0, Chloride 106, Carbon Dioxide 24, Anion Gap 14, BUN 9, Creatinine 0.6 L, Est GFR ( Amer) > 60, Est GFR (Non-Af Amer) > 60, Random Glucose 96, Calcium 9.6, Magnesium 2.1, Total Bilirubin 0.3, AST 38 H D, ALT 43, Alkaline Phosphatase 97, Total Protein 8.5 H, Albumin 4.8, Globulin 3.7, Albumin/Globulin Ratio 1.3 12/24/17 21:41: WBC 10.1, RBC 4.66, Hgb 13.1, Hct 39.9, MCV 85.6, MCH 28.1, MCHC 32.8, RDW 14.8 H, Plt Count 393, MPV 9.7, Gran % 66.3, Lymph % (Auto) 24.8, [place] % (Auto) 8.3 H, Eos % (Auto) 0.4 L, Baso % (Auto) 0.2, Gran # 6.70 H, Lymph # (Auto) 2.5, [place] # (Auto) 0.8 H, Eos # (Auto) 0.0, Baso # (Auto) 0.02 Vital Signs Temp Pulse Pulse Resp BP Pulse Ox 12/25/17 07:29 97.9 F 91 H 22 132/101 H 12/25/17 04:49 78 18 12/25/17 02:30 99 12/24/17 20:10 98.2 F 86 18 129/70 96 over the course of this hospitalization patient was stabilized on the following medications: Seroquel resumed 200 mg twice a day for psychosis Depakote resumed 500 mg at the nighttime for stabilization Sertraline was increased to 150 mg daily for depression and anxiety Trileptal 300mg po bid for mood stabilization patient tolerated medications well, no side effects observed or reported, aims 0, no EPS. Patient was seen today at the treatment team meeting with psych social worker, patient presented very well, patient reported that she feels better and denied being depressed, patient has future oriented plans to help her mother to find department, as per collaterals from the psych social worker patient mother requested for the pt to be discharged, as per mother pt presented well and mother willing to take pt back home. Patient was observed over the weekend, patient was pleasant, corporative, no agitation or aggression, compliant with the medications. At the time of the discharge pt denied been depressed, denied thoughts of harming self or others, denied psychotic symptoms, and pt does not appeared to be psychotic, denied been anxious, pt is not in imminent danger to self or others, pt will be followed up with outpatient program, information about follow up appointment, time and address provided to the pt, it is patient responsibility to follow up with outpatient clinic, PMD as well as specialists (see SW note for more detailed information). In case pt will need to obtain results of studies pending at discharge pt was provided with contact information of Psychiatric Inpatient unit [phone] as well as Medical Record Department [phone]. pt was provided with prescriptions for all of medications (please see medication reconciliation form) Pt was educated about safety plan in case of worsening of symptoms or in case of suicidal or homicidal ideation call 911 or go to the nearest ER, also was educated to take meds as prescribed and stay away from drugs, pt verbalized understanding. - Diagnosis (1) Psychosis Status: Chronic Priority: High (2) Neurocognitive disorder Status: Chronic Priority: Medium - Final Diagnosis (DSM 5) Condition upon Discharge: GOOD Disposition: HOME/ ROUTINE Follow-up Treatment Plan: At the time of the discharge pt denied been depressed, denied thoughts of harming self or others, denied psychotic symptoms, and pt does not appeared to be psychotic, denied been anxious, pt is not in imminent danger to self or othe rs, pt will be followed up with outpatient program, information about follow up appointment, time and address provided to the pt, it is patient responsibility to follow up with outpatient clinic, PMD as well as specialists (see SW note for more detailed information). In case pt will need to obtain results of studies pending at discharge pt was provided with contact information of Psychiatric Inpatient unit [phone] as well as Medical Record Department [phone]. pt was provided with prescriptions for all of medications (please see medication reconciliation form) Pt was educated about safety plan in case of worsening of symptoms or in case of suicidal or homicidal ideation call 911 or go to the nearest ER, also was educated to take meds as prescribed and stay away from drugs, pt verbalized understanding. Prescriptions/Medication Reconciliation: Divalproex [Depakote ER(ONCE DAILY)] 500 mg PO HS #14 ter OXcarbazepine [Trileptal] 300 mg PO BID #30 tab Quetiapine Fumarate [Seroquel] 200 mg PO AMHS #30 tab Sertraline [Zoloft] 100 mg PO DAILY #14 tab Sertraline [Zoloft] 50 mg PO DAILY #14 tab - Smoking Cessation Smoking Cessation Medication prescribed: No Reason for not providing: patient denied smoking - Antipsychotic Medications Pt discharged on 2 or more routine antipsychotic medications: No
== END 2017-12-29 15:18 | disposition home or self-care (01) | DRG 885 ==
LOC: ED 19:13 → ERH 21:43 → PSYC 12-25 02:55
PROVIDERS: ADMIT Psychiatry & Neurology Psychiatry; ATTEND Psychiatry & Neurology Psychiatry
DX: F29 Unspecified psychosis not due to a substance or known physiological condition (principal); R45.851 Suicidal ideations; F41.9 Anxiety disorder, unspecified; F81.9 Developmental disorder of scholastic skills, unspecified; E11.9 Type 2 diabetes mellitus without complications; E66.9 Obesity, unspecified; Z59.0 Homelessness; Z91.14 Patient's other noncompliance with medication regimen; R41.9 Unspecified symptoms and signs involving cognitive functions and awareness; Z68.52 Body mass index [BMI] pediatric, 5th percentile to less than 85th percentile for age

== ENCOUNTER 2018-03-12 14:42 | Emergency (ER) | payer MEDICAID, MEDICARE ==
[2018-03-12 15:02] VITALS: BMI 32.3
[2018-03-12 15:40] LABS: BASO # 0.01 K/mm3 (0.0-2.0); BASO % 0.1 % (0.0-3.0); EOS # 0.1 (0.0-0.7); EOS % 1.5 % (1.5-5.0); GRAN # 5.23 (1.4-6.5); GRAN % 69.9 % (50.0-68.0); HEMOGLOBIN 11.9 g/dL (12.0-16.0); LYMPH # 1.7 (1.2-3.4); MEAN CELL VOLUME 83.3 fl (80.0-105.0); MEAN CORPUSCULAR HEMOGLOBIN 26.5 pg (25.0-35.0); MEAN CORPUSCULAR HGB CONC 31.8 g/dl (31.0-37.0); MEAN PLATELET VOLUME 9.3 fl (7.0-11.0); MONO # 0.4 (0.1-0.6); MONO % 5.5 % (1.0-6.0); RBC 4.49 10^6/uL (3.5-6.1); RED CELL DISTRIBUTION WIDTH 15.1 % (11.5-14.5); WHITE BLOOD COUNT 7.5 10^3/uL (4.5-11.0)
[2018-03-12 15:43] LABS: URINE BILIRUBIN NEGATIVE (NEGATIVE); URINE BLOOD TRACE-INTACT (NEGATIVE); URINE GLUCOSE (UA) NEGATIVE (NEGATIVE); URINE LEUKOCYTE ESTERASE NEGATIVE Leu/uL (NEGATIVE); URINE PROTEIN 100 mg/dL (<30 mg/dL); URINE UROBILINOGEN 0.2 E.U./dL (<1 E.U./dL)
[2018-03-12 15:50] LABS: URINE APPEARANCE TURBID (CLEAR); URINE COLOR YELLOW (YELLOW)
[2018-03-12 15:51] LABS: ACETAMINOPHEN < 10.0 ug/ml (10.0-20.0); ALB/GLOB RATIO 1.2 (1.1-1.8); ALBUMIN 4.3 g/dL (3.0-4.8); ALT/SGPT 39 U/L (7-56); AST/SGOT 33 U/L (14-36); BLOOD UREA NITROGEN 10 mg/dL (7-21); CALCIUM 9.3 mg/dL (8.4-10.5); GFR NON-AFRICAN AMERICAN > 60; SALICYLATE < 1 mg/dL (2.0-20.0)
[2018-03-12 15:55] LABS: BARBITURATES, UR NEGATIVE (NEGATIVE); BENZODIAZEPINES, UR NEGATIVE (NEGATIVE); OPIATES, UR NEGATIVE (NEGATIVE); PHENCYCLIDINE, UR NEGATIVE (NEGATIVE)
--- NOTE | 2018-03-12 16:05 | ED PDOC ---
Arrival/HPI - General Chief Complaint: Psychiatric Evaluation Time Seen by Provider: 03/12/18 14:44 Historian: Patient - History of Present Illness Narrative History of Present Illness (Text): 03/12/18 16:02 22yo morbidly obese female with history of Depression bib EMS for psychiatric evaluation. Patient states that she [place] [facility] [place] that she will like to talk to her Psychiatrist and they sent EMS for her. She notes feeling depressed. Denies SI/HI, hallucination, any somatic complaint. Past Medical History - Provider Review Nursing Documentation Reviewed: Yes - Infectious Disease Hx of Infectious Diseases: None - Cardiac Hx Hypertension: No - Pulmonary Hx Tuberculosis: No - Neurological Hx Seizures: No - Endocrine/Metabolic Hx Endocrine Disorders: Yes Hx Diabetes Mellitus Type 2: Yes - Hematological/Oncological Hx Cancer: No - Genitourinary/Gynecological Hx Sexually Transmitted Diseases: No - Psychiatric Hx Anxiety: Yes Hx Depression: Yes Hx Substance Use: No - Anesthesia Hx Anesthesia: No - Suicidal Assessment Feels Threatened In Home Enviroment: No Family/Social History - Physician Review Nursing Documentation Reviewed: Yes Family/Social History: Unknown Family HX Smoking Status: Never Smoked Hx Alcohol Use: No Hx Substance Use: No Allergies/Home Meds Allergies/Adverse Reactions: Allergies No Known Allergies Allergy (Verified 01/06/18 18:12) Home Medications: Home Meds Medication Instructions Recorded Confirmed Quetiapine Fumarate [Seroquel] 100 mg PO HS 01/06/18 01/06/18 RX: OXcarbazepine [Trileptal] 500 mg PO BID 01/06/18 01/06/18 Review of Systems - Physician Review All systems were reviewed & negative as marked: Yes - Review of Systems Constitutional: Normal Eyes: Normal ENT: Normal Respiratory: Normal Cardiovascular: Normal Gastrointestinal: Normal Genitourinary Female: Normal Musculoskeletal: Normal Skin: Normal Neurological: Normal Endocrine: Normal Hemo/Lymphatic: Normal Psychiatric: Depression Physical Exam Vital Signs Reviewed: Yes Temperature: Afebrile Blood Pressure: Normal Pulse: Regular Respiratory Rate: Normal Appearance: Positive for: Well-Appearing, Non-Toxic, Comfortable Pain Distress: None Mental Status: Positive for: Alert and Oriented X 3 - Systems Exam Head: Present: Atraumatic, Normocephalic Pupils: Present: PERRL Extroacular Muscles: Present: EOMI Conjunctiva: Present: Normal Mouth: Present: Moist Mucous Membranes Neck: Present: Normal Range of Motion Respiratory/Chest: Present: Clear to Auscultation, Good Air Exchange. No: Respiratory Distress, Accessory Muscle Use Cardiovascular: Present: Regular Rate and Rhythm, Normal S1, S2. No: Murmurs Abdomen: No: Tenderness, Distention, Peritoneal Signs Back: Present: Normal Inspection Upper Extremity: Present: Normal Inspection. No: Cyanosis, Edema Lower Extremity: Present: Normal Inspection. No: Edema Neurological: Present: GCS=15, CN II-XII Intact, Speech Normal Skin: Present: Warm, Dry, Normal Color. No: Rashes Psychiatric: Present: Alert, Oriented x 3, Normal Insight, Normal Concentration Medical Decision Making ED Course and Treatment: 03/12/18 19:25 Pt was seen in ED for stated history. Labs was reviewed and unremarkable. She was medically cleared for psych evaluation She was seen in ED by CARLOS Borrero. He DC with the psychiatrist and pt was DC home to f/u with outpt mental health. States patient have appointment with her program next week. - Lab Interpretations Lab Results: Total Bilirubin 0.2 mg/dL (0.2-1.3) 03/12/18 15:36 AST 33 U/L (14-36) 03/12/18 15:36 ALT 39 U/L (7-56) 03/12/18 15:36 Alkaline Phosphatase 91 U/L (38-126) 03/12/18 15:36 Total Protein 7.8 g/dL (5.8-8.3) 03/12/18 15:36 Albumin 4.3 g/dL (3.0-4.8) 03/12/18 15:36 Globulin 3.5 gm/dL 03/12/18 15:36 Albumin/Globulin Ratio 1.2 (1.1-1.8) 03/12/18 15:36 Urine Color Yellow (YELLOW) 03/12/18 15:30 Urine Appearance Turbid (CLEAR) 03/12/18 15:30 Urine pH 6.0 (4.7-8.0) 03/12/18 15:30 Ur Specific [place] >= 1.030 (1.005-1.035) 03/12/18 15:30 Urine Protein 100 mg/dL (<30 mg/dL) H 03/12/18 15:30 Urine Glucose (UA) Negative mg/dL (NEGATIVE) 03/12/18 15:30 Urine Ketones Negative mg/dL (NEGATIVE) 03/12/18 15:30 Urine Blood Trace-intact (NEGATIVE) H 03/12/18 15:30 Urine Nitrate Negative (NEGATIVE) 03/12/18 15:30 Urine Bilirubin Negative (NEGATIVE) 03/12/18 15:30 Urine Urobilinogen 0.2 E.U./dL (<1 E.U./dL) 03/12/18 15:30 Ur Leukocyte Esterase Negative Patricia/uL (NEGATIVE) 03/12/18 15:30 Disposition/Present on Arrival - Present on Arrival Any Indicators Present on Arrival: No History of DVT/PE: No History of Uncontrolled Diabetes: No Urinary Catheter: No History of Decub. Ulcer: No History Surgical Site Infection Following: None - Disposition Have Diagnosis and Disposition been Completed?: Yes Diagnosis: Depression Disposition: HOME/ ROUTINE Disposition Time: 17:00 Patient Plan: Discharge Condition: STABLE Discharge Instructions (ExitCare): Depression, Adult (DC) Additional Instructions: Follow up with a psychiatrist Return to ED for new or worsening symptoms Referrals: [facility] [Outside] - Follow up with primary Forms: [email or web address] (E[place]an)
[2018-03-12 16:14] VITALS: BP 141/76; PULSE 89; RESP 18; TEMP 98.7; O2SAT 100
[2018-03-12 16:14] LABS: URINE RBC 0 - 2 /hpf (0-2)
--- NOTE | 2018-03-12 20:20 | CARD ---
APPROVED REPORT Date of service: 03/12/2018 EKG Measurement Heart [id number] <Conclusion> Normal sinus rhythm Normal ECG
== END 2018-03-12 17:07 | disposition home or self-care (01) ==
LOC: ED 14:42
DX: F32.9 Major depressive disorder, single episode, unspecified (principal); E11.9 Type 2 diabetes mellitus without complications; E66.01 Morbid (severe) obesity due to excess calories
CPT/HCPCS: 80053; 80164; 81001; 81025; 83735; 85025; 90791; 93005; 99283; G0480